=== PATIENT | female | born 1995 | race Caucasian/White ===

== ENCOUNTER → 2017-02-25 | Outpatient (CLI) | payer BC ==
[~2017-02-25] MED LIST: AMOXICILLIN 50500 MG PO; CRYSELLE 30 MCG1 TAB PO; ZANTAC 150150 MG PO
[2017-02-28 16:40] LABS: Neisseria gonorrhoeae, NAA Negative (Negative)
== END ==
LOC: LAB 17:39
PROVIDERS: Nurse Practitioner Obstetrics & Gynecology
DX: Z30.40 Encounter for surveillance of contraceptives, unspecified (principal)